=== PATIENT | male | born 1995 | race Caucasian/White ===

== ENCOUNTER 2021-04-23 17:08 | Emergency (ER) | payer OTHER ==
[~2021-04-23] VITALS: Ht 177.8 cm; Wt 75.0 kg
[2021-04-23 17:10] VITALS: BP 154/78
== END 2021-04-23 20:10 | disposition left against medical advice (07) ==
LOC: ER 17:08
DX: Z53.21 Procedure and treatment not carried out due to patient leaving prior to being seen by health care provider (principal)
CPT/HCPCS: 82962; 99283